=== PATIENT | female | born 1965 | race Two or more races ===

== ENCOUNTER 2022-09-12 14:08 | Outpatient (REF) | payer OTHER, SELFPAY ==
--- NOTE | ~2022-09-12 | XR_ITS ---
EXAMINATION: XR LUMBOSACRAL SPINE WITH OBLIQUES CLINICAL INFORMATION: Spondylosis without myelopathy or radiculopathy, lumbar region. COMPARISON: None available. TECHNIQUE: AP, both oblique, and lateral views of the lumbar spine. Lateral view of the lumbosacral junction. FINDINGS: Vertebral body heights and intervertebral disc spaces are fairly well preserved in the lumbar spine. There is moderate facet arthropathy in the lower lumbar spine. Alignment is normal. Sacroiliac joints are intact. XR/XR lumbar spine 6V w bending IMPRESSION: Moderate facet arthropathy in the lower lumbar spine.
--- NOTE | ~2022-09-12 | XR_ITS ---
EXAMINATION: XR BILATERAL HIPS WITH AP PELVIS CLINICAL INFORMATION: Pain right hip COMPARISON: None available. TECHNIQUE: AP view of the pelvis and single views of each hip were obtained. FINDINGS: There is no displaced pelvic fracture. There is mild cartilage space narrowing in both hips with mild spurring in the superior acetabula. The femoral heads are well-seated within the acetabulum. Some phleboliths within the pelvis. XR/XR hip BI w PEL1V IMPRESSION: Mild degenerative change in both hips. No displaced fracture.
== END 2022-09-12 14:09 | disposition home or self-care (01) ==
LOC: HO.XRAY 14:08
PROVIDERS: PCP Internal Medicine; Visit Provider Nurse Practitioner Family
DX: M25.551 Pain in right hip (principal); M25.552 Pain in left hip; M47.816 Spondylosis without myelopathy or radiculopathy, lumbar region; M46.1 Sacroiliitis, not elsewhere classified; M96.1 Postlaminectomy syndrome, not elsewhere classified; M70.61 Trochanteric bursitis, right hip; Z98.890 Other specified postprocedural states
CPT/HCPCS: 72114; 73521

== ENCOUNTER 2022-09-12 14:08 | Outpatient (AMB) | payer OTHER, SELFPAY ==
--- NOTE | 2022-09-12 14:10 | MHC.OFFVIS ---
Intake Vital Signs 09/12/22 14:15 Height 5 ft 2 in Weight 185 lb 6 oz BMI 33.9 BP 118/74 Blood Pressure Location Lt brachial Position Sitting Pulse 78 Pulse Source Pulse Oximeter Pulse Oximetry (%) 98 Oxygen Delivery Method Room Air Intake Visit Reasons: Chronic neck and back pain Allergies No Known Allergies Allergy (Verified 09/12/22 14:14) HPI Chronic neck and back pain HPI Details Patient is a pleasant 57 years old female with history of fibromyalgia, lumbar disc herniation, bilateral carpal tunnel syndrome, chronic back pain, cervical disc disease and s/p ACDF in 2012, depression and pre-diabetes, presents today with neck and low back pain. Denies any recent trauma, injury or falls. Per referral notes, patient was seen by psychiatrist in 06/2018 with plans for injection which never happened due to traumatic experience with previous injections. She was also on opioid CSC which was violated in 2019 due to cocaine use. She also tried gabapentin, duloxetine, Flexeril, physical therapy and heat therapy with continued symptoms. Patient also presents with significant right hip and groin pain and mild bilateral sacroiliac joint tenderness and moderate right greater trochanteric bursa tenderness. She cannot sleep on her right side due to lateral right hip. Patient reports she is very hesitant towards interventional treatments due to traumatic experience with previous injections. She is willing to undergo right hip and right GTB injection under sedation to alleviate her right leg pain, worse with weight bearing, changing positions and sitting. Denies any fever, weight loss, bladder or bowel incontinence or saddle anesthesia. Location Neck and low back pain Duration Chronic pain for >12 years Characteristics of symptom or complaint Aching, throbbing, stabbing, spasming, tingling, shooting, cramping Aggravating or associated factors Any movements, daily activities, weather changes, walking Relieving factors Gabapentin, duloxetine, Flexeril, previosuly on opioid contract Treatment Physical therapy, injections-no relief PFSH Medical History (Updated 09/14/22 @ 00:47 by EFFIE Rea) Arm numbness Bilateral carpal tunnel syndrome Cervical disc disease Chronic back pain Cigarette smoker Depression Fibromyalgia Hyperlipidemia Lumbar disc herniation Prediabetes Surgical History (Updated 09/14/22 @ 00:47 by EFFIE Rea) H/O colonoscopy H/O tubal ligation History of neck surgery Hx of cholecystectomy Social History (Updated 09/12/22 @ 14:30 by Elodia Carpenter) Alcohol intake: current Alcohol intake frequency: 0-2 drinks per day Tobacco use type: Cigarette Cigarette Packs Per Day: 0.5 Years Smoked: 36 Review of Systems Const All systems reviewed & are unremarkable except as noted in HPI and below Physical Exam Vital Signs: Last Vital Signs Pulse 78 09/12/22 14:15 BP 118/74 09/12/22 14:15 Pulse Ox 98 09/12/22 14:15 Oxygen Delivery Method Room Air 09/12/22 14:15 BMI result Body Mass Index 33.9 General: Appears afebrile. Alert and oriented. Mood and affect appropriate. Follows and participates in conversation appropriately. Respiratory effort is unlabored. No cough. Able to transition from sit to stand unassisted. Ambulates with bilaterally normal heel strike and toe off but has difficulty on the right due to pain. Neck Neck: Yes no lymphadenopathy, Yes supple, No anterior neck swelling and Yes no JVD General: Yes no CVA tenderness Back/Spine/Pelvis Other: Patient is able to walk and stand on heels and tip toes with mild difficulty on the right. Demonstrates good motor tone. Mildly antalgic gait with limping. Can flex forward to 65-75 degrees and extend to 5-10 degrees before experiencing lumbar pain. Demonstrates 5/5 strength of quadriceps bilaterally as well as flexion/dorsiflexion of bilateral feet against resistance. 2+ pedal pulses bilaterally. Seated straight leg rise with dorsiflexion negative bilaterally. +1 patellar and achilles reflexes bilaterally. Facet loading test positive bilaterally. Lorenzo sign, Luther?s, Pelvic compression, SI distraction and Stinchfield tests are positive bilaterally, R>L. Moderate right groin pain with I/E hip rotations on the right. TTP to right GTB. Back: no CVA tenderness and back tenderness Cervical Spine: pain with cervical ROM, Cervical spine scars present, cervical spasm and No Cervical spine tenderness Thoracic/Lumbar Spine: thoracic and lumbar spine normal to inspection, Lasegue's sign negative, straight leg raise negative bilaterally, thoraco-lumbar spasm and thoracic spinal tenderness Pelvis: buttock tenderness on the right and no sciatic notch tenderness Sacroiliac joints: bilaterally tender to palpation Results Reviewed Results Reviewed: No imaging results or reports are available today for review. Assessment & Plan Assessment & Plan (1) Bilateral hip pain: Code(s): M25.551 - Pain in right hip; M25.552 - Pain in left hip (2) Lumbar spondylosis: Code(s): M47.816 - Spondylosis without myelopathy or radiculopathy, lumbar region (3) Sacroiliitis: Code(s): M46.1 - Sacroiliitis, not elsewhere classified (4) History of neck surgery: Code(s): Z98.890 - Other specified postprocedural states (5) Cervical post-laminectomy syndrome: Code(s): M96.1 - Postlaminectomy syndrome, not elsewhere classified (6) Greater trochanteric bursitis of right hip: Code(s): M70.61 - Trochanteric bursitis, right hip Plan 1. Lumbar spine and hip with pelvic imaging to assess degree of degenerative changes, any subluxation, listhesis or pars defects. 2. Tentatively plan for Right Intra-articular Hip steroid injection and Right Steroid GTB injection under sedation and fluoroscopy. Patient had traumatic experience with past injections but is willing to undergo therapeutic injections under sedation. 3. Patient was informed that she is not candidate for our opioid program and that our office does not offer opioid prescribing at this time. Briefly discussed neuromodulation with Sprint PNS trial, SCS trial and therapeutic injections for neck pain. Informational pamphlets were provided today. All questions and concerns have been answered and patient agreed with the plan. Follow up after injections and sooner if needed. Anticoagulation: Patient not on anticoagulant Justification for interventional therapy: ? Patient with average pain > 6/10 ? Patient has exhausted conservative therapy, NSAIDs, physical therapy ? Patient continuing home exercise program The risks, consequences, alternatives, and benefits of various treatment options were discussed with the patient in great detail, including conservative management, injections and procedures. I informed patient of the hyperglycemic effects of steroids. Orders: Orders XR hip BI w PEL1V 09/12/22 M25.551 - Pain in right hip, M25.552 - Pain in left hip XR lumbar spine 6V w bending 09/12/22 M47.816 - Spondylosis without myelopathy or radiculopathy, lumbar region Medications: New diclofenac sodium 1% (Arthritis Pain (diclofenac)) apply to single knee, ankle, foot; for foot includes sole/toes/top of foot 4 grams topical QID 100 grams 3RF pain M25.551 - Pain in right hip, M25.552 - Pain in left hip, M46.1 - Sacroiliitis, not elsewhere classified, M47.816 - Spondylosis without myelopathy or radiculopathy, lumbar region Coding Level of Care Code New Pt Level 4 (28578) Diagnoses Bilateral hip pain M25.551; M25.552 Lumbar spondylosis M47.816 Sacroiliitis M46.1 History of neck surgery Z98.890 Cervical post-laminectomy syndrome M96.1 Greater trochanteric bursitis of right hip M70.61
[2022-09-12 14:15] VITALS: BP 118/74; PULSE 78; O2SAT 98; BMI 33.9
== END 2022-09-12 14:55 | disposition home or self-care (01) ==
PROVIDERS: PCP Internal Medicine; Visit Provider Nurse Practitioner Family
DX: M25.551 Pain in right hip (principal); M25.552 Pain in left hip; M47.816 Spondylosis without myelopathy or radiculopathy, lumbar region; M46.1 Sacroiliitis, not elsewhere classified; Z98.890 Other specified postprocedural states; M96.1 Postlaminectomy syndrome, not elsewhere classified; M70.61 Trochanteric bursitis, right hip
CPT/HCPCS: 99204